=== PATIENT | female | born 1960 | race Caucasian/White ===

== ENCOUNTER → 2017-01-24 | Outpatient (CLI) | payer BC | LOC: GMAB 10:33 | PROVIDERS: ATTEND Family Medicine | DX: Z00.01 Encounter for general adult medical examination with abnormal findings (principal) ==

== ENCOUNTER → 2017-02-15 | Outpatient (CLI) | payer BC ==
--- NOTE | 2017-02-21 12:12 | MAM ---
EXAM DESCRIPTION: 3D Screening BILATERAL : Digital Mammography. CLINICAL HISTORY: 56 years Female SCREENING . No complaints. Remote family history of breast cancer. Postmenopausal. Currently on HRT. COMPARISON: 2-D digital screening bilateral studies 09/22/2015 and 08/24/2014. No prior reports available. TECHNIQUE: Bilateral CC and MLO projection full-field images, 3-D tomosynthesis digital mammographic technique. Also bilateral synthesized CC/ MLO full-field images. CAD not utilized. FINDINGS: The breast parenchymal density pattern is: Almost entirely fatty. No skin thickening or nipple retraction bilateral solitary microcalcifications. Bilateral intramammary lymph nodes. Inverted left nipple. No focal, stellate mass or density, focal asymmetry , and no suspicious microcalcifications bilaterally. Stable mammograms compared to prior studies, taking into account differences in mammographic technique IMPRESSION: BI-RADS CATEGORY: 2 - BENIGN FINDINGS. FOLLOW UP: Routine digital bilateral screening, one year interval from January 2017. Written communication explaining the IMPRESSION and follow-up, will be mailed to the patient and referring health care provider. According to the [employer], yearly mammograms are recommended starting at age 40 and continuing as long as a woman is in good health. Any breast change noted on a breast self-exam should be reported promptly to the patient's healthcare provider. Breast MRI is recommended for women with an approximately 20-25% or greater lifetime risk of breast cancer, including women with a strong family history of breast or ovarian cancer and women who have been treated for Hodgkin's disease. A negative mammographic report should not delay tissue diagnosis in patients with significant clinical history or physical findings. Extremely dense breast tissue limits the sensitivity of digital mammography. Electronically signed by: Baltazar Salvador MD 02/21/2017 12:11 PM CDT
== END ==
LOC: MAMMO 16:37
PROVIDERS: ATTEND Family Medicine
DX: Z12.31 Encounter for screening mammogram for malignant neoplasm of breast (principal)
CPT/HCPCS: 77063; G0202

== ENCOUNTER → 2018-06-06 | Outpatient (CLI) | payer BC | LOC: GMAE 11:39 | PROVIDERS: ATTEND Family Medicine | DX: Z00.01 Encounter for general adult medical examination with abnormal findings (principal) ==

== ENCOUNTER → 2018-06-06 | Outpatient (CLI) | payer BC ==
--- NOTE | 2018-06-07 16:48 | MAM ---
EXAM DESCRIPTION: 3D Screening BILATERAL : Digital Mammography. CLINICAL HISTORY: 58 years Female SCREEN . No complaints. No personal history of breast cancer. Remote family history of breast cancer. Childbirth. Hysterectomy 18 years ago. Currently on HRT. Lifetime risk of developing breast cancer (Tyrer-Cuzick model)(%): 6.9. COMPARISON: Bilateral screening digital breast tomosynthesis 02/15/2017. TECHNIQUE: Bilateral CC and MLO projection full-field images, digital tomosynthesis mammographic technique. Bilateral digital 2-D full-field MLO images. CAD not available for tomosynthesis or 2-D images. FINDINGS: The breast parenchymal density pattern is: Almost entirely fatty. No skin thickening or nipple retraction. Bilateral solitary microcalcifications and coarse calcifications. There is a small multilobulated lesion in the anterior third of the left breast lower inner quadrant at approximately 8:30 clock position 5 cm from the nipple. It may have enlarged since the prior study with slight increase in density this could represent physiologic change of an intramammary lymph node. There is also a lymph node in the middle third of the right breast upper outer quadrant at the 930 clock position which appears to have enlarged since the prior study. This is approximately 10 cm from the nipple. IMPRESSION: BI-RADS CATEGORY: 0 - INCOMPLETE- Need additional imaging evaluation. FOLLOW-UP: Recall for additional imaging: Bilateral targeted breast ultrasound on the regions of interest.. Written communication concerning the IMPRESSION and Follow-up, will be mailed to the patient and referring health care provider. Electronically signed by: Baltazar Salvador MD 06/07/2018 4:46 PM [employer]
== END ==
LOC: MAMMO 15:42
PROVIDERS: ATTEND Obstetrics & Gynecology
DX: Z12.31 Encounter for screening mammogram for malignant neoplasm of breast (principal)

== ENCOUNTER → 2018-06-17 | Outpatient (CLI) | payer BC ==
--- NOTE | 2018-06-18 13:09 | US ---
EXAM DESCRIPTION: Breast,Bilateral: Ultrasound CLINICAL HISTORY: 58 yearsFemaleABNORMAL MAMMO COMPARISON: Bilateral screening digital breast tomosynthesis 06/06/2018. TECHNIQUE: Transcutaneous scanning of the bilateral breast utilizing plascencia-scale and Doppler modes. Scanning performed by the brass wind instruments tube bender and Dr. Salvador. FINDINGS: Scanning of the lateral right breast and the upper outer quadrant anterior middle third. Mostly fatty echotexture with minimal fibroglandular deposits. Circumscribed hypoechoic solid tissue, not vascular, wider than tall orientation and mixed posterior acoustic features. 7:30 to 8:00 position. Dimensions are 4.1 x 2.8 x 2.2 mm. Lymph node versus small fibroadenoma. Scanning of the left breast medial and lower inner quadrant anterior third. Circumscribed anechoic object measuring 5.0 x 2.7 x 2.2 mm. Wider than tall orientation posterior acoustic enhancement. Nonvascular. 8:30 position 5 cm from the nipple. Most likely a cyst. IMPRESSION: Benign exam. BIRAD CATEGORY: 2 BENIGN FINDINGS. RECOMMENDATIONS: FOLLOW UP: Return to routine digital bilateral mammographic screening, one year interval from May 2018 The FINDINGS and the FOLLOW-UP plan were reviewed in person with the patient after the examination. Written communication explaining the IMPRESSION and FOLLOW-UP will be mailed to the patient and referring care provider. According to the [employer], yearly mammograms are recommended starting at age 40 and continuing as long as a woman is in good health. Any breast change noted on a breast self-exam should be reported promptly to the patient's healthcare provider. Breast MRI is recommended for women with an approximately 20-25% or greater lifetime risk of breast cancer, including women with a strong family history of breast or ovarian cancer and women who have been treated for Hodgkin's disease. A negative mammographic report should not delay tissue diagnosis in patients with significant clinical history or physical findings. Extremely dense breast tissue limits the sensitivity of digital mammography. Electronically signed by: Baltazar Salvador MD 06/18/2018 1:06 PM [employer]
== END ==
LOC: US 14:49
PROVIDERS: ATTEND Obstetrics & Gynecology
DX: R92.8 Other abnormal and inconclusive findings on diagnostic imaging of breast (principal)

== ENCOUNTER 2018-08-07 05:20 | Day surgery (SDC) | payer BC ==
[2018-08-07] MEDS ORDERED: PROPOFOL 200 MG/20 ML VIAL IV ONE (07:00)
[2018-08-07] MEDS ORDERED: LACTATED RINGERS 1,000 ML ONE (07:47)
[2018-08-07 12:48] VITALS: O2SAT 97
[2018-08-07 12:51] VITALS: BP 119/64; TEMP 98.1
--- NOTE | 2018-08-07 13:20 | OP ---
DATE OF PROCEDURE: 08/07/18 PREPROCEDURE DIAGNOSIS: 1. Colorectal cancer screening. POSTPROCEDURE DIAGNOSIS: 1. Colonic polyp. 2. Diverticulosis. 3. Internal hemorrhoids. PROCEDURE: 1. Colonoscopy. SURGEON: Abel Marti MD COMPLICATIONS: No immediate complications. SEDATION: The patient was sedated via IV propofol by the Anesthesia Department. CONSENT: Prior to the procedure, risks, benefits and alternatives to the therapy were discussed with the patient. The risks included bleeding, infection, perforation and . The patient agreed to the procedure and signed a consent. PREPROCEDURE ANESTHESIA ASSESSMENT: An examination revealed no contraindication to sedation. Airway examination demonstrated a Mallampati class type 2, ASA grade assessment type 2. Throughout the procedure, the patient's blood pressure and additional vital signs were closely monitored. PROCEDURE: The patient was placed in the left lateral decubitus position and a rectal examination was performed. The rectal examination was within normal limits. The Olympus colonoscope was passed in the anus and all the way into the cecum as identified by the ileocecal valve and appendiceal orifice. The scope was retracted and the mucosa was visualized. The entirety of the exam was performed under direct visualization. Preparation quality was good. The withdrawal time was greater than 6 minutes. The patient tolerated the procedure well. FINDINGS: 1. An 8 mm sessile polyp was found in the cecum. This was resected with cold snare and completely retrieved. No bleeding during or at the end of the procedure. 2. Small scattered diverticula were found in the sigmoid colon. 3. Nonbleeding, small, grade 2 internal hemorrhoids were found in retroflexion. 4. External hemorrhoids were found at the perianal examination. RECOMMENDATION: 1. Return the patient home. 2. Resume previous diet favoring high-fiber foods. 3. Repeat colonoscopy in 5 years. 4. Followup pathology results. 5. Return to referring physicians office as previously scheduled. 6. Return to my office p.r.n. 7. Findings were discussed with the patient and family members. #[id number]
== END 2018-08-07 13:10 | disposition home or self-care (01) ==
LOC: AMB 05:20
PROVIDERS: ATTEND Internal Medicine Gastroenterology
DX: Z12.11 Encounter for screening for malignant neoplasm of colon (principal); D12.0 Benign neoplasm of cecum; K57.30 Diverticulosis of large intestine without perforation or abscess without bleeding; K64.1 Second degree hemorrhoids; Z79.899 Other long term (current) drug therapy
CPT/HCPCS: 00812; 45385; J3490; J7120

== ENCOUNTER 2019-09-01 05:34 | Day surgery (SDC) | payer BC ==
[2019-09-01] MEDS ORDERED: MOXIFLOXACIN HCL (OPHTH) 1 DROP DROPS ONE (05:48)
[2019-09-01] MEDS ORDERED: PROPARACAINE 0.5% OPHTH SOL 15 ML BTTL ONE (05:48)
[2019-09-01] MEDS ORDERED: TROP1%/CYCLOPEN 1%/PHENYL 2.5% DROPS ONE (05:48)
[2019-09-01] MEDS ORDERED: MIDAZOLAM INJ 2 MG/2 ML VIAL ONE (09:34)
[2019-09-01] MEDS ORDERED: PROPARACAINE 0.5% OPHTH SOL 15 ML BTTL LEFT_EYE ONE (09:37)
[2019-09-01] MEDS ORDERED: TOBRAMYCIN SULF 0.3 % OPHT SOL 1 DROP LEFT_EYE ONE ×2 (09:47→09:55)
[2019-09-01] MEDS ORDERED: LIDOCAINE 1% MPF 2 ML VIAL INJ ONE (09:47)
[2019-09-01] MEDS ORDERED: MOXIFLOXACIN HCL (OPHTH) 1 DROP DROPS LEFT_EYE ONE ×2 (09:47→09:55)
[2019-09-01] MEDS ORDERED: DEXAMETHASONE 0.1% OPHTH SOL 1 DROP LEFT_EYE ONE ×2 (09:47→09:55)
[2019-09-01] MEDS ORDERED: BRIMONIDINE 0.2% OPHTH DROPS LEFT_EYE ONE ×2 (09:48→09:55)
== END 2019-09-01 10:35 | disposition home or self-care (01) ==
LOC: AMB 05:34
PROVIDERS: ATTEND Ophthalmology
DX: H25.12 Age-related nuclear cataract, left eye (principal); I10 Essential (primary) hypertension; Z79.899 Other long term (current) drug therapy
CPT/HCPCS: 00142; 66984; J2250

== ENCOUNTER 2019-09-15 05:32 | Day surgery (SDC) | payer BC ==
[2019-09-15] MEDS ORDERED: PROPARACAINE 0.5% OPHTH SOL 15 ML BTTL ONE (05:52)
[2019-09-15] MEDS ORDERED: TROP1%/CYCLOPEN 1%/PHENYL 2.5% DROPS ONE (05:52)
[2019-09-15] MEDS ORDERED: MOXIFLOXACIN HCL (OPHTH) 1 DROP DROPS ONE (05:52)
[2019-09-15] MEDS ORDERED: MIDAZOLAM INJ 2 MG/2 ML VIAL ONE (07:05)
[2019-09-15] MEDS ORDERED: PROPARACAINE 0.5% OPHTH SOL 15 ML BTTL RIGHT_EYE ONE ×2 (07:37→08:04)
[2019-09-15] MEDS ORDERED: LIDOCAINE 1% 2 ML VIAL INJ ONE ×2 (07:38→08:04)
[2019-09-15] MEDS ORDERED: MOXIFLOXACIN HCL (OPHTH) 1 DROP DROPS RIGHT_EYE ONE ×2 (07:38→08:04)
[2019-09-15] MEDS ORDERED: TOBRAMYCIN SULF 0.3 % OPHT SOL 1 DROP RIGHT_EYE ONE ×2 (07:39→08:04)
[2019-09-15] MEDS ORDERED: DEXAMETHASONE 0.1% OPHTH SOL 1 DROP RIGHT_EYE ONE ×2 (07:39→08:04)
[2019-09-15] MEDS ORDERED: BRIMONIDINE 0.2% OPHTH DROPS RIGHT_EYE ONE ×2 (07:40→08:04)
== END 2019-09-15 09:20 | disposition home or self-care (01) ==
LOC: AMB 05:32
PROVIDERS: ATTEND Ophthalmology
DX: H25.11 Age-related nuclear cataract, right eye (principal); H52.201 Unspecified astigmatism, right eye; E66.9 Obesity, unspecified; I10 Essential (primary) hypertension; Z79.899 Other long term (current) drug therapy
CPT/HCPCS: 00142; 66984; 66999; J2250

== ENCOUNTER → 2020-04-13 | Outpatient (CLI) | payer BC | LOC: GMAE 11:06 | PROVIDERS: ATTEND Family Medicine | DX: Z00.00 Encounter for general adult medical examination without abnormal findings (principal) ==